=== PATIENT | female | born 1985 | race Two or more races ===

== ENCOUNTER 2023-01-24 06:21 | Day surgery (SDC) | payer OTHER | END 2023-01-24 19:00 | disposition home or self-care (01) | LOC: CIR.AMB 06:21 | PROVIDERS: ATTEND Student in an Organized Health Care Education/Training Program | DX: Z30.2 Encounter for sterilization (principal); N83.8 Other noninflammatory disorders of ovary, fallopian tube and broad ligament; Z88.6 Allergy status to analgesic agent; Z91.013 Allergy to seafood; Z87.891 Personal history of nicotine dependence ==